=== PATIENT | female | born 1980 | race Caucasian/White ===

== ENCOUNTER 2016-09-08 16:04 | Emergency (ER) | payer BC ==
[~2016-09-08] VITALS: Ht 160 cm; Wt 60.0 kg
--- OUTSIDE RECORDS SUMMARY | 2016-09-08 16:09 | XMS REPORT | Continuity of Care Document ---
Author Author [facility] Organization [facility] Address Unknown Phone Unavailable Support Name Relationship Address Phone SEPTEMBER, DANIEL Roa DO Caregiver [address] [place] [address] Unavailable KVNG LIANG DO Caregiver [address] [place] [address] Unavailable LINDA MIQUEL Next Of Kin [address] [place] [address] Insurance Providers Guarantor Constance Blakely Address [address] [place] [address] c Email [email or web address] Payer [facility] Policy Number [id number] Subscriber's Name Kimberley Donisilan Reyes Relationship 01 Spouse Group Number [id number] Advance Directives Directive Response Recorded Date/Time Advanced Directives Type None 06/03/16 11:00pm Chief Complaint and Reason for Visit Chief Complaint Lower Extremity Injury Reason for Visit Contusion of foot Contusion of toe of left foot Problems Active Problems Medical Problem Onset Date Status Bronchitis with asthma, acute Unknown Acute Fall Unknown Acute Migraine Unknown Acute Right flank discomfort Unknown Acute Ruptured ovarian cyst Unknown Chronic Sinusitis Unknown Acute Thoracic back pain Unknown Acute Past Problems Medical Problem Onset Date Contusion of foot Unknown Contusion of toe of left foot Unknown Migraine headache Unknown Ruptured ovarian cyst Unknown Medications Past Home Medications Medication Directions Ordered Status Atenolol 25 Mg Tablet, 25 Mg Oral Daily 12/30/10 Discontinued Azithromycin (Zithromax) 250 Mg Tablet, 250 Mg Oral Daily 09/27/13 Discontinued Baclofen 10 Mg Tablet, 1 Tab Oral Bedtime 05/11/15 Discontinued Budesonide (Pulmicort) 0.25 Mg/2 Ml Ampul.neb, As Needed 09/24/09 Discontinued Ciprofloxacin Hcl (Cipro) 250 Mg Tablet, 05/22/08 Discontinued Diphenoxylate Hcl/Atrop Sulf (Lomotil) 1 Udtab Tablet, As Needed 05/13/09 Discontinued Escitalopram Oxalate (Lexapro) 10 Mg Tablet, 1 Tab Oral Daily 05/13/09 Discontinued Gabapentin (Neurontin) 300 Mg Capsule, 1 Tab Oral Daily 05/13/09 Discontinued Hydrocodone Bit/Acetaminophen (Lortab 7.5-500 Tablet) 1 Tab Tablet, 1 Tab Oral As Needed 05/03/08 Discontinued Hydrocodone/Acetaminophen (Hydrocodon-Acetaminophen 5-325) 1 Each Tablet, 1-2 Tab Oral Every 6 Hours as needed for Pain 05/11/15 Discontinued Ibuprofen (Motrin) 800 Mg Tablet, 800 Mg Oral As Needed 05/03/08 Discontinued Levalbuterol Hcl (Xopenex) 1.25 Mg/0.5/Blist Pack Vial.neb., As Needed Discontinued None , 12/01/11 Discontinued None , 03/22/08 Discontinued Omeprazole 20 Mg Capsule.dr, 20 Mg Oral Before Breakfast 03/10/16 Discontinued Omeprazole (Prilosec) 20 Mg Capsule.dr, 1 Tab Oral Daily 05/13/09 Discontinued Ondansetron (Zofran Odt) 4 Mg/Udtablet Tab.rapdis, 4 Mg Oral As Needed Discontinued Social History Social History Problem Response Recorded Date/Time Onset Date Status Hx Substance Use No 06/03/2016 11:11pm Not Applicable Not Applicable Hx Alcohol Use Y RARELY 06/03/2016 11:11pm Not Applicable Not Applicable Tobacco Usage none 08/26/2014 2:45am Not Applicable Not Applicable Query Response Start Date Stop Date Smoking Status Never smoker Hospital Discharge Instructions No hospital discharge instructions. Plan of Care Discharge Date 06/04/16 12:05am Disposition 01 DISCHARGED HOME, SELF-CARE Condition at Discharge Stable Instructions/Education Provided DI for Contusion Prescriptions See Medication Section Referrals KVNG LIANG DO Address: [address] [place] [phone] Additional Instructions/Education No fracture identified on xray today. I do want you to ice and elevate and take Ibuprofen as needed for pain. Follow up with your primary care provider as needed if not improving at all. Care Plan and Goals Physician Care Plan Problem:Left toe and foot contusion Goal: Follow up with primary care provider Instructions: Take medications and follow care plan as discussed/written Functional Status No functional status results. Allergies, Adverse Reactions, Alerts Allergen Type Severity Reaction Status Last Updated Morphine Allergy Unknown Active 06/03/16 Doxycycline Allergy Severe THROAT SWELLS Active 06/03/16 Immunizations Query Response on File Recorded Date/Time Hx Influenza Vaccination Y 201310/08/14 10:27pm Hx Pneumococcal Vaccination Y fall 200710/08/14 10:27pm Hx Tetanus, Diptheria, Pertussis No 10/08/14 10:27pm Hx Influenza Vaccination Y 201310/08/14 10:27pm Hx Tetanus Diptheria N UNKNOWN 06/03/16 11:11pm Hx Tetanus, Diptheria, Pertussis No 10/08/14 10:27pm Influenza Vaccine Hx 03/1606/03/16 11:11pm Vital Signs Acute Vital Signs Vital Response Date/Time Temperature (Fahrenheit) 98.2 deg F (96.8 - 99.1) 06/04/2016 12:05am Temperature (Calculated Celsius) 36.11676 degrees C (36.0 - 37.3) 06/04/2016 12:05am Pulse Rate (adult) 83 bpm (60 - 100) 06/04/2016 12:05am Respiratory Rate 16 breaths/min (10 - 20) 06/04/2016 12:05am O2 Sat by Pulse Oximetry 100 % (90 - 100) 06/04/2016 12:05am Blood Pressure 113/52 mm Hg 06/04/2016 12:05am Height (Feet) 5 feet 06/03/2016 11:00pm Height (Inches) 3.00 inches 06/03/2016 11:00pm Weight (Kilograms) 63.900 kg 06/03/2016 11:00pm Body Mass Index (BMI) 24.0 06/03/2016 11:00pm Results Laboratory Results Test Name Result Units Flags Reference Collection Date/Time Result Date/ Time Comments Urine Collection Type CLEANCATCH-MIDSTREAM 03/10/2016 11:11pm 03/10 11:32pm Urine Color YELLOW YELLOW 03/10/2016 11:11pm 03/10/2016 11:32pm Urine Turbidity CLEAR CLEAR 03/10/2016 11:11pm 03/10/2016 11:32pm Urine Specific [place] 1.010 L 1.015-1.025 03/10/2016 11:11pm 2015 11:32pm Urine pH 8.5 H 5.0-8.0 03/10/2016 11:11pm 03/10/2016 11:32pm Urine Leukocyte Esterase NEGATIVE NEGATIVE 03/10/2016 11:11pm 2015 11:32pm Urine Nitrite NEGATIVE NEGATIVE 03/10/2016 11:11pm 03/10/2016 11: 32pm Urine Protein NEGATIVE NEGATIVE 03/10/2016 11:11pm 03/10/2016 11: 32pm Urine Glucose (UA) NEGATIVE NEGATIVE 03/10/2016 11:11pm 03/10/2016 11 :32pm Urine Ketones NEGATIVE NEGATIVE 03/10/2016 11:11pm 03/10/2016 11: 32pm Urine Urobilinogen 0.2 EU/DL NORMAL 03/10/2016 11:11pm 03/10/2016 11: 32pm Urine Bilirubin NEGATIVE NEGATIVE 03/10/2016 11:11pm 03/10/2016 11: 32pm Urine Blood NEGATIVE NEGATIVE 03/10/2016 11:11pm 03/10/2016 11:32pm Urinalysis Comment MICROSCOPIC NOT IND. 03/10/2016 11:11pm 2015 11:32pm Procedures Procedure Status Date Provider(s) URINALYSIS AUTO W/O SCOPE Completed 03/10/16 THER/PROPH/DIAG INJ IV PUSH Completed 03/10/16 TX/PRO/DX INJ NEW DRUG ADDON Completed 03/10/16 TX/PRO/DX INJ NEW DRUG ADDON Completed 03/10/16 EMERGENCY DEPT VISIT Completed 03/10/16848153"INJECTION, HYDROMORPHONE, UP TO 4 MG" Completed 03/10/16500998"INJECTION, KETOROLAC TROMETHAMINE, PER 15 MG" Completed 03/10/16721590"INJECTION, ONDANSETRON HYDROCHLORIDE, PER 1 MG" Completed 03/10/16 Compound Drug, Not Otherwise Classified Completed 03/10/16 THER/PROPH/DIAG INJ SC/IM Completed 03/31/16 THER/PROPH/DIAG INJ SC/IM Completed 03/31/16 THER/PROPH/DIAG INJ SC/IM Completed 03/31/16 EMERGENCY DEPT VISIT Completed 03/31/16246377"INJECTION, HYDROMORPHONE, UP TO 4 MG" Completed 03/31/16721145"INJECTION, KETOROLAC TROMETHAMINE, PER 15 MG" Completed 03/31/16898438"INJECTION, PROMETHAZINE HCL, UP TO 50 MG" Completed 03/31/16 Encounters Encounter Location Arrival/Admit Date Discharge/Depart Date Attending Provider Departed Emergency Room [facility] 06/03/16 10:51pm 06/04/16 12: 05am SEPTEMBERDANIEL DO Departed Emergency Room [facility] 03/31/16 9:53pm 04/01/16 12: 33am ORTEGA KIRK MD Departed Emergency Room [facility] 03/10/16 10:33pm 03/11/16 12: 10am ORTEGA KIRK MD Recent Diagnosis
--- OUTSIDE RECORDS SUMMARY | 2016-09-08 16:09 | XMS REPORT | Continuity of Care Document ---
Author Author [facility] Organization [facility] Address Unknown Phone Unavailable Allergies Medications Problems Procedures Results Encounters ACCT No. Visit Date/Time Discharge Status Pt. Type Provider Facility Loc./Unit Complaint [id number] 03/12/2015 11:12:00 2014 23:59:59 CLS Outpatient
--- OUTSIDE RECORDS SUMMARY | 2016-09-08 16:09 | XMS REPORT | Continuity of Care Document ---
Author Author [facility] Organization [facility] Address Unknown Phone Unavailable Support Name Relationship Address Phone JEWEL OSBORNE MD Caregiver [address] [place] [address] DYLAN BAILEY MD Caregiver [address] [place] [address] [place] [phone] MIQUEL MCKEON Next Of Kin [address] [place], [place] [id number] Insurance Providers Payer Name Policy Number Subscriber Name Relationship [facility] [id number] Gagandeep Sr,Everardo L 01 Spouse Problems Medical Problems Problem Onset Date Status Migraine Unknown Active Sinusitis Unknown Active Migraine Unknown Active Migraine Unknown Active Medications Medication Dose Route Sig Days/Qty Instructions Order Date Discontinued Date Status [None] 03/22/08 05/02/08 Discontinued Ibuprofen 800 Mg PO NEEDED 05/03/08 09/24/09 Discontinued Hydrocodone Bit/Acetaminophen 1 Tab PO NEEDED 05/03/08 01/26/09 Discontinued Ciprofloxacin Hcl 05/22/08 07/28/08 Discontinued Escitalopram Oxalate 1 Tab PO DAILY 05/13/09 09/24/09 Discontinued Diphenoxylate Hcl/Atrop Sulf NEEDED 05/13/09 09/24/09 Discontinued Gabapentin 1 Tab PO DAILY 05/13/09 09/24/09 Discontinued Omeprazole 1 Tab PO DAILY 05/13/09 09/24/09 Discontinued Budesonide NEEDED 09/24/09 12/30/10 Discontinued Levalbuterol Hcl NEEDED 09/24/09 12/30/10 Discontinued Atenolol 25 Mg PO DAILY 12/30/10 12/01/11 Discontinued Ondansetron 4 Mg PO NEEDED 12/30/10 12/01/11 Discontinued [None] 12/01/11 09/27/13 Discontinued Azithromycin 250 Mg PO DAILY 4 Qty 09/27/13 09/27/13 Discontinued Hydrocodone/Acetaminophen 1-2 Tab PO Every 6 Hours PRN PAIN 04/19/14 Active Ondansetron 4 Mg PO EVERY 4 HOURS Oral Disintegrating Tablet 04/19/14 Active Caffeine 04/19/14 Active Social History Social History Problem Response Recorded Date/Time Smoking Status Never smoker 09/27/2013 1:40am Hx Substance Use No 04/19/2014 9:30pm Hx Alcohol Use No 04/19/2014 9:30pm Query Response Start Date Stop Date Smoking Status Current every day smoker Hospital Discharge Instructions No hospital discharge instructions. Plan of Care No plan of care. Functional Status Query Response Date Recorded Physical Hygiene Self April 19, 2014 9:30pm Disabilities None April 19, 2014 9:30pm Devices Used Glasses April 19, 2014 9:30pm Dressing Self April 19, 2014 9:30pm Ambulation Self April 19, 2014 9:30pm Diet Self April 19, 2014 9:30pm Mental Status Alert Oriented April 19, 2014 9:30pm Disabilities None April 19, 2014 9:30pm Devices Used Glasses April 19, 2014 9:30pm Physical Hygiene Self April 19, 2014 9:30pm Dressing Self April 19, 2014 9:30pm Ambulation Self April 19, 2014 9:30pm Diet Self April 19, 2014 9:30pm Allergies, Adverse Reactions, Alerts Allergen Type Severity Reaction Status Last Updated Doxycycline Allergy Severe THROAT SWELLS Active 04/19/14 Immunizations Name Given Type Hx Influenza Vaccination Y FALL 2007 Historical Hx Pneumococcal Vaccination Y FALL 2007 Historical Hx Tetanus, Diptheria, Pertussis No Historical Hx Influenza Vaccination Y FALL 2007 Historical Hx Tetanus Diptheria N UNKNOWN Historical Hx Tetanus, Diptheria, Pertussis No Historical Vital Signs Acute Vital Signs Vital Response Date/Time Pulse Rate (adult) 59 bpm (60 - 100) Respiratory Rate 18 breaths/min (10 - 20) O2 Sat by Pulse Oximetry 99 % (90 - 100) Blood Pressure 104/51 mm Hg Results Test Source Date Result Interp. Ref. Range Comments Activated Partial Thromboplast Time May 22, 2008 10:45pm 32.8 SEC N 25-36 Alanine Aminotransferase (ALT/SGPT) January 22, 2013 12:25am 28 U/L N 9- 52 Albumin January 22, 2013 12:25am 4.2 G/DL N 3.5-5.0 Albumin/Globulin Ratio January 22, 2013 12:25am 1.8 RATIO N 1.1-2.2 Alkaline Phosphatase January 22, 2013 12:25am 53 U/L N 38-126 Amylase Level January 22, 2013 12:25am 64 U/L N 30-110 Anion Gap January 22, 2013 12:25am 12 MEQ/L N 5-15 Aspartate Amino Transf (AST/SGOT) January 22, 2013 12:25am 22 U/L N 14- 36 BUN/Creatinine Ratio January 22, 2013 12:25am 15 RATIO N 6-26 Band Neutrophils # January 30, 2009 5:05am 0.0 T/MM3 - Band Neutrophils % January 30, 2009 5:05am 0.0 % N 0-6 Basophils # (Auto) January 22, 2013 12:25am 0.0 T/MM3 N 0-0.2 Basophils # (Manual) January 30, 2009 5:05am 0.0 T/MM3 N 0-0.2 Basophils % (Manual) January 30, 2009 5:05am 0.0 % N 0-2 Basophils (%) (Auto) January 22, 2013 12:25am 0.3 % N 0-2 Blood Urea Nitrogen January 22, 2013 12:25am 9.0 MG/DL N 7-17 C-Reactive Protein January 27, 2009 7:00pm < 5 MG/L 0-9 Calcium Level January 22, 2013 12:25am 8.9 MG/DL N 8.4-10.2 Calculated Osmolality January 22, 2013 12:25am 269 MOSM/KG N 261-280 Carbon Dioxide Level January 22, 2013 12:25am 26 MEQ/L N 22-30 Chloride Level January 22, 2013 12:25am 103 MEQ/L N 98-107 Conjugated Bilirubin January 29, 2009 5:40am 0.00 MG/DL N 0.00-0.30 Creatinine January 22, 2013 12:25am 0.6 MG/DL L 0.7-1.2 Differential Total Cells Counted January 27, 2009 7:00pm 100 % - Eosinophils # (Auto) January 22, 2013 12:25am 0.4 T/MM3 N 0-0.5 Eosinophils # (Manual) January 30, 2009 5:05am 0.2 T/MM3 N 0-0.5 Eosinophils % (Manual) January 30, 2009 5:05am 4.0 % N 0-4 Eosinophils (%) (Auto) January 22, 2013 12:25am 5.3 % H 0-4 Lui-Vega Virus Serology August 20, 2009 2:52pm Ref lab rpt scanned - --- 08/23/09 1528 ---EBVAB previously reported as: SEND OUT Erythrocyte Sedimentation Rate January 27, 2009 7:00pm 6 MM/HR N 0-20 Fasting Glucose August 27, 2009 9:27am 0 90 - Fibrinogen May 03, 2008 11:05pm 326 MG/DL N 153-406 Free Thyroxine December 13, 2010 9:10am 1.00 NG/DL N 0.78-2.19 Globulin January 22, 2013 12:25am 2.4 G/DL N 2.4-3.6 Glucose 1 Hour August 27, 2009 9:27am 4080 99 - Glucose 1/2 Hour August 27, 2009 9:27am 1920 115 - Glucose 2 Hour August 27, 2009 9:27am 7680 86 - Glucose Level January 22, 2013 12:25am 87 MG/DL N 65-110 Group A Streptococcus Screen September 21, 2007 12:10am Negative - Strep culture confirmation to follow Hematocrit January 22, 2013 12:25am 37.1 % N 36-46 Hemoglobin January 22, 2013 12:25am 12.7 GM/DL N 12-16 Lipase January 22, 2013 12:25am 68 U/L N 23-300 Lymphocytes # (Auto) January 22, 2013 12:25am 2.7 T/MM3 N 1-4.8 Lymphocytes # (Manual) January 30, 2009 5:05am 2.4 T/MM3 N 1-4.8 Lymphocytes % (Manual) January 30, 2009 5:05am 48.0 % H 23-45 Lymphocytes (%) (Auto) January 22, 2013 12:25am 38.1 % N 23-45 Mean Corpuscular Hemoglobin January 22, 2013 12:25am 33.2 UUG N 26-34 Mean Corpuscular Hemoglobin Concent January 22, 2013 12:25am 34.2 GM/DL N 31-37 Mean Corpuscular Volume January 22, 2013 12:25am 96.9 UM3 N 80-100 Mean Platelet Volume January 22, 2013 12:25am 10.2 UM3 N 9.4-12.4 Monocytes # (Auto) January 22, 2013 12:25am 0.6 T/MM3 N 0-0.8 Monocytes # (Manual) January 30, 2009 5:05am 0.5 T/MM3 N 0-0.8 Monocytes % (Manual) January 30, 2009 5:05am 10.0 % H 0-9.0 Monocytes (%) (Auto) January 22, 2013 12:25am 8.6 % N 0-9.0 Neutrophils # (Auto) January 22, 2013 12:25am 3.4 T/MM3 N 1.8-7.7 Neutrophils # (Manual) January 30, 2009 5:05am 1.9 T/MM3 N 1.8-7.7 Neutrophils % (Manual) January 30, 2009 5:05am 38.0 % N 33-66 Neutrophils (%) (Auto) January 22, 2013 12:25am 47.6 % N 33-66 Platelet Count January 22, 2013 12:25am 225 T/MM3 N 130-400 Potassium Level January 22, 2013 12:25am 3.5 MEQ/L L 3.6-5 Prealbumin January 27, 2009 7:00pm 18.9 MG/DL N 17.6-36.0 Prothromb Time International Ratio May 22, 2008 10:45pm 0.99 N 0.79 -1.23 THERAPUTIC RANGE=2.00-3.00 FOR ANTI-THROMBOSIS THERAPUTIC RANGE=2.50- 3.50 FOR IMPLANTED VALVE RDW Standard Deviation January 22, 2013 12:25am 42.8 FL N 36.9-50.2 Red Blood Count January 22, 2013 12:25am 3.83 M/MM3 L 4.00-5.20 Sodium Level January 22, 2013 12:25am 141 MEQ/L N 134-144 Tests Not Done January 27, 2009 9:55pm Not done - COMMENT WITH C&S IF INDICATEDHas specimen been collected/obtained? Y Thyroid Stimulating Hormone (TSH) December 13, 2010 9:10am 2.68 MIU/L N 0.47 -4.68 Total Bilirubin January 22, 2013 12:25am 0.30 MG/DL N 0.20-1.30 Total Protein January 22, 2013 12:25am 6.6 G/DL N 6.3-8.2 Unconjugated Bilirubin January 29, 2009 5:40am 0.27 MG/DL N 0.00-1.10 Urine Bacteria March 22, 2008 4:34pm Trace - Has specimen been collected/obtained? YWhat is the Source? VOIDED Urine Bilirubin January 22, 2013 12:50am Negative - Has specimen been collected/obtained? Y Urine Blood January 22, 2013 12:50am Negative - Has specimen been collected/obtained? Y Urine Collection Type January 22, 2013 12:50am Cleancatch-midstream - Has specimen been collected/obtained? Y Urine Color January 22, 2013 12:50am Yellow - Has specimen been collected/obtained? Y Urine Fasting Glucose August 27, 2009 9:27am 0 Negative - Urine Glucose (UA) January 22, 2013 12:50am Negative - Has specimen been collected/obtained? Y Urine Glucose 1 Hour August 27, 2009 9:27am 4080 Shirt Cleaner - Urine Glucose 1/2 Hour August 27, 2009 9:27am 1920 Negative - Urine Glucose 2 Hour August 27, 2009 9:27am 7680 Shirt Cleaner - Urine Ketones January 22, 2013 12:50am Negative - Has specimen been collected/obtained? Y Urine Leukocyte Esterase January 22, 2013 12:50am Negative - Has specimen been collected/obtained? Y Urine Nitrite January 22, 2013 12:50am Negative - Has specimen been collected/obtained? Y Urine Test March 22, 2008 4:34pm Negative - Has specimen been collected/obtained? YWhat is the Source? VOIDED Urine Protein January 22, 2013 12:50am Negative - Has specimen been collected/obtained? Y Urine RBC May 22, 2008 10:33pm None seen /HPF - Has specimen been collected/obtained? Y Urine Specific [place] January 22, 2013 12:50am 1.005 L - Has specimen been collected/obtained? Y Urine Squamous Epithelial Cells March 22, 2008 4:34pm Few - Has specimen been collected/obtained? YWhat is the Source? VOIDED Urine Turbidity January 22, 2013 12:50am Clear - Has specimen been collected/obtained? Y Urine Urobilinogen January 22, 2013 12:50am Normal EU/DL - Has specimen been collected/obtained? Y Urine WBC May 22, 2008 10:33pm 1-3 /HPF - Has specimen been collected/obtained? Y Urine Yeast May 22, 2008 10:33pm Trace - Has specimen been collected/obtained? Y Urine pH January 22, 2013 12:50am 6.5 - Has specimen been collected/ obtained? Y Vitamin B12 Level January 27, 2009 7:00pm 341 PG/ML N 239-931 White Blood Count January 22, 2013 12:25am 7.2 T/MM3 N 4.5-11.0 Urinalysis Comment January 22, 2013 12:50am Microscopic not ind. - Has specimen been collected/obtained? Y Lab Scanned Report November 25, 2013 7:15pm LAB TEST FORM REQUEST [id number] - Glomerular Filtration Rate Calc January 22, 2013 12:25am 115 - Immature Granulocyte # (Auto) January 22, 2013 12:25am 0.01 T/MM3 N 0.00- 0.03 Immature Granulocyte % (Auto) January 22, 2013 12:25am 0.1 % N 0.0-0.5 Group A Streptococcus Culture Throat September 21, 2007 1:01am Urine Culture Urine, Clean Catch Voided December 13, 2010 9:10am Helicobacter pylori Rapid Urease Gastric Biopsy January 27, 2009 11:14am Procedures No known history of procedures. Encounters Encounter Location Date/Time Departed Emergency Room [facility] 04/19/14 9:00pm Recent Diagnosis
--- OUTSIDE RECORDS SUMMARY | 2016-09-08 16:09 | XMS REPORT | Continuity of Care Document ---
Author Author [facility] Organization [facility] Address Unknown Phone Unavailable Support Name Relationship Address Phone KVNG LIANG DO Caregiver [address] [place] [phone] JENARO FRIED MD Caregiver [address] [facility] [address] [place] [address] LINDASERGEY JACOBSAY Next Of Kin [address] [place] [address] Insurance Providers Payer Name Policy Number Subscriber Name Relationship [facility] [id number] Everardo Donis 01 Spouse Problems Medical Problems Problem Onset Date Status Migraine Unknown Active Sinusitis Unknown Active Migraine Unknown Active Migraine Unknown Active Bronchitis with asthma, acute Unknown Active Bronchitis with asthma, acute Unknown Active Medications Medication Dose Route Sig [...] Every 6 Hours PRN PAIN 04/19/14 Active Azithromycin 1 Pack PO DIRECTED 1 Qty Take 2 tabs the first day then 1 tab daily on days 2 through 08/26/14 Active Phenylephrine HCl/Cod/Prometh 5 Ml PO Every 6 Hours PRN COUGH 50 Qty Active Cetirizine HCl 1 Cap PO DAILY 10 Days 08/26/14 Active Fluconazole 1 Tab PO as directed 2 Qty tab 3 days later 08/26/14 Active Social History Social History Problem Response Recorded Date/Time Chewing Tobacco Status No 08/26/2014 12:20am Hx Substance Use No 08/26/2014 12:20am Hx Alcohol Use No 08/26/2014 12:20am Tobacco Usage none 08/26/2014 2:45am Query Response Start Date Stop Date Smoking Status Never smoker Hospital Discharge Instructions No hospital discharge instructions. Plan of Care No plan of care. Functional Status Query Response Date Recorded Physical Hygiene Self August 26, 2014 12:20am Disabilities Visual August 26, 2014 12:20am Devices Used Glasses August 26, 2014 12:20am Dressing Self August 26, 2014 12:20am Ambulation Self August 26, 2014 12:20am Diet Self August 26, 2014 12:20am Mental Status Alert Oriented August 26, 2014 1:43am Disabilities Visual August 26, 2014 12:20am Devices Used Glasses August 26, 2014 12:20am Physical Hygiene Self August 26, 2014 12:20am Dressing Self August 26, 2014 12:20am Ambulation Self August 26, 2014 12:20am Diet Self August 26, 2014 12:20am Allergies, Adverse Reactions, Alerts Allergen Type Severity Reaction Status Last Updated Doxycycline Allergy Severe THROAT SWELLS Active 08/26/14 Immunizations Name Given Type Hx Influenza Vaccination Y FALL 2007 Historical Hx Pneumococcal Vaccination Y FALL 2007 Historical Hx Tetanus, Diptheria, Pertussis No Historical Hx Influenza Vaccination Y FALL 2007 Historical Hx Tetanus Diptheria N UNKNOWN Historical Hx Tetanus, Diptheria, Pertussis No Historical Vital Signs Acute Vital Signs Vital Response Date/Time Temperature (Fahrenheit) 98.4 deg F (96.8 - 99.1) Temperature (Calculated Celsius) 36.02523 degrees C (36.0 - 37.3) Pulse Rate (adult) 88 bpm (60 - 100) Respiratory Rate 20 breaths/min (10 - 20) O2 Sat by Pulse Oximetry 100 % (90 - 100) Blood Pressure 115/66 mm Hg Blood Pressure 115/66 mm Hg Height (Feet) 5 feet Height (Inches) 3 inches Weight (Kilograms) 64.68 kg Body Mass Index (BMI) 25.0 Results Test Source Date Result Interp. Ref. Range Comments Influenza Type B Antigen August 26, 2014 12:50am Negative - Negative for Flu B protein antigen. Assay sensitivity is90%. Influenza Type A Antigen August 26, 2014 12:50am Negative - Negative for Flu A protein antigen. Assay sensitivity is90%. Activated Partial Thromboplast Time May 22, 2008 [...] 1 Hour August 27, 2009 9:27am 4080 Shoe Fitter - Urine Glucose 1/2 Hour August 27, 2009 9:27am 1920 Negative - Urine Glucose 2 Hour August 27, 2009 9:27am 7680 Shoe Fitter - Urine Ketones January 22, 2013 12:50am [...] Has specimen been collected/obtained? Y Urine Specific [place] January 22, 2013 12:50am 1.005 L - [...] 25, 2013 7:15pm LAB TEST FORM REQUEST [id number] - Glomerular Filtration Rate Calc January 22, 2013 12:25am 115 - Immature Granulocyte # (Auto) January 22, 2013 12:25am 0.01 T/MM3 N 0.00- 0.03 Immature Granulocyte % (Auto) January 22, 2013 12:25am 0.1 % N 0.0-0.5 Group A Streptococcus Culture Throat September 21, 2007 1:01am Helicobacter pylori Rapid Urease Gastric Biopsy January 27, 2009 11:14am Urine Culture Urine, Clean Catch Voided December 13, 2010 9:10am Procedures Procedure Status Date Provider(s) ULTRASOUND BREAST LIMITED completed 07/07/14 [id number]"DIAGNOSTIC MAMMOGRAPHY, PRODUCING DIRECT DIGITAL IMAG completed Encounters Encounter Location Date/Time Departed Emergency Room [facility] 08/26/14 12:05am Registered Clinic [facility] 07/07/14 9:28am Recent Diagnosis
[2016-09-08 16:15] VITALS: TEMP 98.6; Ht 160 cm; Wt 60.0 kg
--- NOTE | 2016-09-08 17:19 | NUR ---
REASSESSMENT NOTE No change in earlier assessment. Communication regarding delay explained
--- NOTE | 2016-09-08 17:49 | ERPDOC ---
Departure Disposition Decision Date: Sep 08, 2016 Disposition Decision Time: 17:53 Disposition: 01 DISCHARGED HOME, SELF-CARE Impression Impression Impression: Primary Impression: Migraine Qualified Codes: G43.009 - Migraine without aura, not intractable, without status migrainosus Severity: Moderate Condition: Stable Seen By: Physician only Referrals: KVNG LIANG DO (Family) Patient Instructions: Migraine Headache (ED) Problems/Meds/Labs Reviewed?: Yes Medications reviewed and manag: Yes Follow up care ordered?: Yes Mental Status: Alert, Oriented Scripts No Active Prescriptions or Reported Meds HPI - Headache General Chief Complaint: Headache Stated Complaint: MIGRAINE Time Seen by Provider: 17:48 HPI - Headache Allergies: Coded Allergies: doxycycline (Verified Allergy, Severe, THROAT SWELLS, 09/08/16) morphine (Verified Allergy, Unknown, 09/08/16) Past History Past Medical History Respiratory: asthma, pneumonia GI: gallbladder disease, ulcers Female: endometriosis, endometritis, kidney stones Neurological: TIA, migraines, multiple sclerosis Musculoskeletal: back pain, neck pain Psychological: depression Surgical History General: EGD, appendix, exploratory laparotomy, gallbladder Reproductive/: hysterectomy Joint: knee Family History Family PMH: FOUND: other Vaccines Hx Influenza Vaccination: Yes (2013) Hx Pneumococcal Vaccination: Yes (FALL 2007) Hx Tetanus Diptheria: No (UNKNOWN) Hx Tetanus, Diptheria, Pertuss: No Social History Does patient use chewing tobac: No Second Hand Exposure: No Substance Use Type: does not use Alcohol Intake: none Sexuality: male partner Physical Exam General Vitals and Pain First Documented Vital Signs Date Time Temp Pulse Resp B/P Pulse Ox O2 Delivery O2 Flow Rate FiO2 09/08/16 16:15 98.6 80 16 96/53 98 Room Air Weight: Kilograms: 60.000 Height (feet): 5 Height (inches): 3.00 Triage Pain Scale: JENARO FRIED MD Sep 08, 2016 17:49
[2016-09-08] MEDS ORDERED: PROMETHAZINE 25 MG INJECTION IM ONE (18:00)
[2016-09-08] MEDS ORDERED: KETOROLAC 60mg/2ml INJECTION IM ONE (18:00)
[2016-09-08] MEDS ORDERED: ORPHENADRINE 60mg/2ml INJECTION IM ONE (18:00)
[2016-09-08] MEDS ORDERED: NO ROUTINE MEDS (18:01)
[2016-09-08] MEDS ORDERED: ONDA4TAB4 PO (18:01)
[2016-09-08] MEDS ORDERED: HYDR-4246 PO (18:01)
--- OUTSIDE RECORDS SUMMARY | 2016-09-08 18:13 | XMS REPORT | Continuity of Care Document ---
Author Author [facility] Organization [facility] Address Unknown Phone Unavailable Allergies Medications Problems Procedures Results Encounters ACCT No. Visit Date/Time Discharge Status Pt. Type Provider Facility Loc./Unit Complaint [id number] 03/12/2015 11:12:00 2014 23:59:59 CLS Outpatient
--- OUTSIDE RECORDS SUMMARY | 2016-09-08 18:13 | XMS REPORT | Continuity of Care Document ---
Author Author [facility] Organization [facility] Address Unknown Phone Unavailable Support Name Relationship Address Phone KVNG LIANG DO Caregiver [address] [place] [phone] JENARO FRIED MD Caregiver [address] [place] [address] LINDASERGEY JACOBSAY Next Of Kin [address] [place] [address] Insurance Providers Payer Name Policy Number Subscriber Name Relationship [facility] [id number] Everardo Donis 01 Spouse Problems Medical Problems [...] F (96.8 - 99.1) Temperature (Calculated Celsius) 36.50188 degrees C (36.0 - 37.3) Pulse Rate [...] 1 Hour August 27, 2009 9:27am 4080 [employer] Tender - Urine Glucose 1/2 Hour August 27, 2009 9:27am 1920 Negative - Urine Glucose 2 Hour August 27, 2009 9:27am 7680 [employer] Machine Tender - Urine Ketones January 22, 2013 12:50am [...] Has specimen been collected/obtained? Y Urine Specific [place] January 22, 2013 12:50am 1.005 L - [...] 25, 2013 7:15pm LAB TEST FORM REQUEST [id number] - Glomerular Filtration Rate Calc January 22, [...] Date Provider(s) ULTRASOUND BREAST LIMITED completed 07/07/14 [id number]"DIAGNOSTIC MAMMOGRAPHY, PRODUCING DIRECT DIGITAL IMAG completed Encounters Encounter Location Date/Time Departed Emergency Room [facility] 08/26/14 12:05am Registered Clinic [facility] 07/07/14 9:28am Recent Diagnosis
--- OUTSIDE RECORDS SUMMARY | 2016-09-08 18:13 | XMS REPORT | Continuity of Care Document ---
Author Author [facility] Organization [facility] Address Unknown Phone Unavailable Support Name Relationship Address Phone JEWEL OSBORNE MD Caregiver [address] [place] [address] DYLAN BAILEY MD Caregiver [address] [place] [address] [place] [phone] MIQUEL MCKEON Next Of Kin [address] [place], [place] [id number] Insurance Providers Payer Name Policy Number Subscriber Name Relationship [facility] [id number] Gagandeep Sr,Everardo L 01 Spouse Problems Medical [...] 1 Hour August 27, 2009 9:27am 4080 Email [employer] Processor - Urine Glucose 1/2 Hour August 27, 2009 9:27am 1920 Negative - Urine Glucose 2 Hour August 27, 2009 9:27am 7680 [employer] Processor - Urine Ketones January 22, 2013 12:50am [...] Has specimen been collected/obtained? Y Urine Specific [place] January 22, 2013 12:50am 1.005 L - [...] 25, 2013 7:15pm LAB TEST FORM REQUEST [id number] - Glomerular Filtration Rate Calc January 22, [...] Encounters Encounter Location Date/Time Departed Emergency Room [facility] 04/19/14 9:00pm Recent Diagnosis
[2016-09-08 18:45] VITALS: BP 100/64; PULSE 67; RESP 12; O2SAT 99
--- NOTE | 2016-09-08 18:45 | NUR ---
DEPART PT IS DISCHARGED AT THIS TIME, REPORTS IMPROVED NAUSEA AND REPORTS HER PAIN IS 5/10 AND TOLERABLE. PT LEAVES AMBULATORY WITH MALE AT THIS TIME.
== END 2016-09-08 18:45 | disposition home or self-care (01) ==
LOC: ED 16:04
DX: G43.009 Migraine without aura, not intractable, without status migrainosus (principal)
CPT/HCPCS: 96372; 99283; J1885; J2360; J2550

== ENCOUNTER 2016-10-21 13:57 | Emergency (ER) | payer BC ==
[~2016-10-21] VITALS: Ht 160 cm; Wt 59.0 kg
[~2016-10-21 13:57] MED LIST: HYDR-4246 PO; NO ROUTINE MEDS; ONDA4TAB4 PO
[2016-10-21 13:58] VITALS: TEMP 99.3; Ht 160 cm; Wt 59.0 kg
--- OUTSIDE RECORDS SUMMARY | 2016-10-21 14:02 | XMS REPORT | Continuity of Care Document ---
Author Author [facility] Organization [facility] Address Unknown Phone Unavailable Support Name Relationship Address Phone KVNG LIANG DO Caregiver [address] [place] [address] Unavailable JENARO FRIED MD Caregiver [address] [place] [address] [place] [address] Unavailable SERGEY MCKEONSAY Next Of Kin [address] [place], [place] [phone] Insurance Providers Guarantor Constance Blakely Address [address] [place] [address] c Email [email or web address] Policy Number [id number] Subscriber's Name Everardo Donis Relationship 01 Spouse Group Number [id number] Advance Directives Directive Response Recorded Date/Time Advanced Directives Type None 09/08/16 5:45pm Chief Complaint and Reason for Visit Chief Complaint Headache Reason for Visit Migraine Problems Active Problems Medical Problem Onset Date Status Bronchitis with asthma, acute Unknown Acute Fall Unknown Acute Migraine Unknown Acute Right flank discomfort Unknown Acute Ruptured ovarian cyst Unknown Chronic Sinusitis Unknown Acute Thoracic back pain Unknown Acute Past Problems Medical Problem Onset Date Contusion of foot Unknown Contusion of toe of left foot Unknown Migraine headache Unknown Ruptured ovarian cyst Unknown Medications Current Home Medications Medication Dose Units Route Directions Days Qty Instructions Start Date Hydrocodone/Acetaminophen ([place] 5-325 Tablet) 5-325 Tablet 1 Tab Oral Every 6 Hours as needed for Pain 09/08/16 No Routine Meds 09/08/16 Ondansetron Hcl (Zofran) 4 Mg Tablet 4 Mg Oral Every 4 Hours as needed for Nausea 09/08/16 Past Home Medications Medication Directions Ordered Status Acetaminophen/Hydrocodone Bitart ([place] 5-325 Tablet) 1 Each Tablet, 1-2 Tab Oral Every 6 Hours as needed for Pain 05/11/15 Discontinued Atenolol 25 Mg Tablet, 25 Mg Oral [...] 1 Tab Oral As Needed 05/03/08 Discontinued Ibuprofen (Motrin) 800 Mg Tablet, 800 [...] Onset Date Status Hx Substance Use No 09/08/2016 5:50pm Not Applicable Not Applicable Hx Alcohol Use Y RARELY 09/08/2016 5:50pm Not Applicable Not Applicable Tobacco Usage none 08/26/2014 2:45am Not Applicable Not Applicable Query Response Start Date Stop Date Smoking Status Never smoker Hospital Discharge Instructions No hospital discharge instructions. Plan of Care Discharge Date 09/08/16 6:45pm Disposition 01 DISCHARGED HOME, SELF-CARE Condition at Discharge Stable Instructions/Education Provided Migraine Headache (ED) Prescriptions See Medication Section Referrals KVNG LIANG DO Address: [address] [place] [phone] Care Plan and Goals Physician Care Plan Problem: Headache consistent with migraine Goal: Follow up with primary care provider Instructions: Take medications and follow care plan as discussed/written Functional Status No functional status results. Allergies, Adverse Reactions, Alerts Allergen Type Severity Reaction Status Last Updated Morphine Allergy Unknown Active 09/08/16 Doxycycline Allergy Severe THROAT SWELLS Active 09/08/16 Immunizations Query Response on File Recorded Date/Time Hx Influenza Vaccination Y 201310/08/14 10:27pm Hx Pneumococcal Vaccination Y fall 200710/08/14 10:27pm Hx Tetanus, Diptheria, Pertussis No 10/08/14 10:27pm Hx Influenza Vaccination Y 201310/08/14 10:27pm Hx Tetanus Diptheria N UNKNOWN 06/03/16 11:11pm Hx Tetanus, Diptheria, Pertussis No 10/08/14 10:27pm Influenza Vaccine Hx 03/1609/08/16 5:50pm Vital Signs Acute Vital Signs Vital Response Date/Time Temperature (Fahrenheit) 98.6 deg F (96.8 - 99.1) 09/08/2016 4:15pm Temperature (Calculated Celsius) 37.45984 degrees C (36.0 - 37.3) 09/08/2016 4:15pm Pulse Rate (adult) 67 bpm (60 - 100) 09/08/2016 6:45pm Respiratory Rate 12 breaths/min (10 - 20) 09/08/2016 6:45pm O2 Sat by Pulse Oximetry 99 % (90 - 100) 09/08/2016 6:45pm Blood Pressure 100/64 mm Hg 09/08/2016 6:45pm Blood Pressure 100/64 mm Hg 09/08/2016 6:45pm Height (Feet) 5 feet 09/08/2016 4:15pm Height (Inches) 3.00 inches 09/08/2016 4:15pm Weight (Kilograms) 60.000 kg 09/08/2016 4:15pm Body Mass Index (BMI) 23.0 09/08/2016 4:15pm Results No known relevant diagnostic tests, laboratory data and/or discharge summary. Procedures No known history of procedures. Encounters Encounter Location Arrival/Admit Date Discharge/Depart Date Attending Provider Departed Emergency Room [facility] 09/08/16 4:04pm 09/08/16 6: 45pm JENARO FRIED MD Recent Diagnosis
--- NOTE | 2016-10-21 14:12 | NUR ---
PROVIDER DR. ETIENNE AT BEDSIDE FOR EXAM.
[2016-10-21] MEDS ORDERED: NORMAL SALINE 1,000 ML IV ONE (14:16)
[2016-10-21] MEDS ORDERED: ONDANSETRON 4mg/2ml INJECTION IV ONE ×2 (14:30→17:30)
[2016-10-21] MEDS ORDERED: KETOROLAC 30mg/ml INJECTION IV ONE (14:30)
[2016-10-21 14:35] LABS: HCT - HEMATOCRIT 41.3 % (36-46); HGB - HEMOGLOBIN 14.1 GM/DL (12-16); MEAN CORPUSCULAR HGB 32.9 UUG (26-34); MEAN CORPUSCULAR HGB CONC(MCHC 34.1 GM/DL (31-37); MEAN CORPUSCULAR VOLUME 96.5 UM3 (80-100); MEAN PLATELET VOLUME 10.1 UM3 (9.4-12.4); RED BLOOD COUNT 4.28 M/MM3 (4.00-5.20)
--- NOTE | 2016-10-21 14:35 | ERPDOC ---
Departure Disposition Decision Date: October 21, 2016 Disposition Decision Time: 17:09 Disposition: 01 DISCHARGED HOME, SELF-CARE Impression Impression Impression: Primary Impression: Gastroenteritis Additional Impression: Dehydration Severity: Moderate Condition: Improved Seen By: Physician only Referrals: KVNG LIANG DO (Family) 1 Week Patient Instructions: Gastroenteritis (ED) Problems/Meds/Labs Reviewed?: Yes Medications reviewed and manag: Yes Additional Instructions: You have gastroenteritis (a stomach bug) caused by either a virus or a toxin in your food. Take naproxen or ibuprofen as needed for your pain. Drink lots of liquids, and take zofran as needed for nausea. Allow any diarrhea to take its course. Follow up with your doctor in the next few days. Departure Forms: Return to Work/School Permit Follow up care ordered?: Yes Mental Status: Alert, Oriented Scripts Ondansetron (Ondansetron Odt) 4 Mg Tab.rapdis 4 MG PO Q6HR, #20 TAB Prov: SEPTEMBERDANIEL DO 10/21/16 HPI - Abdominal Pain General Chief Complaint: Nausea,Vomiting,Diarrhea Stated Complaint: N/V, ACHY, FEVER Time Seen by Provider: 13:59 Source: patient History/Exam Limitations: no limitations HPI - Abdominal Pain Initial Comments 36yo woman presents to the ER today with N/V/D. Pts sx have been present for 3- 4 days; she has been trying to keep sx under control with OTC meds and hydrating drinks. Pt has been unsuccessful. Feels achy all over (like she did with the flu earlier this year). Has continued diarrhea and a MONTOYA. Occurred At: home Onset: Gradual, Getting worse Duration: 1 week Quality: cramping Location: generalized abdomen Radiation: no radiation Activities at Onset: none Modifying Factors: IMPROVES WITH: analgesics, defecating, vomiting Associated Symptoms: fever/chills, nausea/vomiting, shortness of breath, weakness Hx of Similar Symptoms: Yes Allergies: Coded Allergies: doxycycline (Verified Allergy, Severe, THROAT SWELLS, 10/21/16) morphine (Verified Allergy, Unknown, 10/21/16) Past History Past Medical History Respiratory: asthma, pneumonia GI: gallbladder disease, ulcers Female: endometriosis, endometritis, kidney stones Neurological: TIA, migraines, multiple sclerosis Musculoskeletal: back pain, neck pain Psychological: depression Surgical History General: EGD, appendix, exploratory laparotomy, gallbladder Reproductive/: hysterectomy Joint: knee Family History Family PMH: FOUND: other Vaccines Hx Influenza Vaccination: Yes (2013) Hx Pneumococcal Vaccination: Yes (FALL 2007) Hx Tetanus Diptheria: No (UNKNOWN) Hx Tetanus, Diptheria, Pertuss: No Social History Does patient use chewing tobac: No Second Hand Exposure: No Substance Use Type: does not use Alcohol Intake: none Sexuality: male partner Review of Systems ENMT Sinuses: congestion, rhinorrhea Mouth/Throat: sore throat Pulmonary Respiratory: cough GI Upper Abdomen: pain Lower Abdomen: diarrhea, pain Neurological General: headache All other Systems All Other Systems: Reviewed and Negative Physical Exam General General Nourishment: well nourished, well developed, appears stated age, no acute distress, adult, thin General Body Habitus: well groomed Vitals and Pain First Documented Vital Signs Date Time Temp Pulse Resp B/P Pulse Ox O2 Delivery O2 Flow Rate FiO2 10/21/16 13:58 99.3 98 18 114/57 98 Room Air Weight: Kilograms: 59.000 Height (feet): 5 Height (inches): 3.00 Triage Pain Scale: RN VS reviewed by Provider: Yes Eyes (brief) Eyes Brief: found: EOMI, PERRL, not found: scleral icterus ENMT (brief) ENMT Brief: FOUND: TM clear, TM good light reflex, ear canals clear, mucosa moist, nasal exudate, normal tonsils Comments PND Neck (brief) Neck: FOUND: adenopathy, trachea midline, NOT FOUND: JVD, thyromegaly Respiratory (brief) Respiratory: FOUND: clear all jaime, equal bilaterally, symmetrical, NOT FOUND : rales, wheezes Cardiovascular (brief) Cardiac: FOUND: regular rate, regular rhythm, NOT FOUND: click, gallop, murmur , pedal edema, peripheral edema, rub Capillary Refill: <2 sec Pulses: all distal extremities, equal, strong Abdomen (brief) Abdominal Brief: FOUND: bowel normo active x4, soft, NOT FOUND: distended, hepatosplenomegaly, pulsatile mass, tender Musculoskeletal (brief) Musculoskeletal Brief: NOT FOUND: deformity, loss of motion, spasm, tenderness Integumentary (brief) Integumentary Brief: FOUND: pink, warm Neurologic (brief) Neurological Brief: FOUND: CN w/o gross def to obs, DTR 2/4 all extremities, gait w/o gross def to obs, motor-no gross deficits, sensory-no gross deficits, NOT FOUND: Babinski Psychiatric (brief) Psychiatric Brief: FOUND: alert, normal affect, oriented Differential Diagnoses Considering: Dehydration, Food Poisoning, Gastroenteritis, Hepatitis, Hyponatremia, Hypokalemia, Hypoglycemia, Influenza, Ingestion/Overdose, Pancreatitis, Pyelonephritis, Renal Colic, Sinusitis, UTI, Viral Syndrome Progress Results/Orders Orders Procedure Category Date Status Time Cbc W/Auto LAB 10/21/16 Complete Diff-Reflex Manual 14:16 Cmp - Comprehensive LAB 10/21/16 Complete Metabolic 14:16 Lipase LAB 10/21/16 Complete 14:16 Tsh - Thyroid Stim LAB 10/21/16 Complete Hormone 14:16 Iv Lock (Ed Only) EDM 10/21/16 Transmitted 14:16 Normal Saline (Normal PHA 10/21/16 Complete Saline Iv) 14:16 Ondansetron Inj PHA 10/21/16 Complete (Zofran) 14:30 Ketorolac (Toradol) PHA 10/21/16 Complete 14:30 Respiratory Panel, Pcr LAB 10/21/16 Complete 14:16 Gi Panel, Pcr, Stool LAB 10/21/16 Logged 14:16 UA, LAB 10/21/16 Complete Dip&Micro(Complete) & 16:48 Ondansetron Inj PHA 10/21/16 Complete (Zofran) 17:30 Lab Results Laboratory Tests Test 10/21/16 14:27 10/21/16 15:12 10/21/16 16:48 White Blood Count 8.0T/MM3 Red Blood Count 4.28M/MM3 Hemoglobin 14.1GM/DL Hematocrit 41.3% Mean Corpuscular Volume 96.5UM3 Mean Corpuscular Hemoglobin 32.9UUG Mean Corpuscular Hemoglobin Concent 34.1GM/DL RDW Standard Deviation 43.5FL Platelet Count 212T/MM3 Mean Platelet Volume 10.1UM3 Immature Granulocyte % (Auto) % Neutrophils (%) (Auto) % Lymphocytes (%) (Auto) % Monocytes (%) (Auto) % Eosinophils (%) (Auto) % Basophils (%) (Auto) % Absolute Immature Granulocyte (auto T/MM3 Absolute Neutrophils (auto) T/MM3 Absolute Lymphocytes (auto) T/MM3 Absolute Monocytes (auto) T/MM3 Absolute Eosinophils (auto) T/MM3 Absolute Basophils (auto) T/MM3 Neutrophils % (Manual) 93.0% Band Neutrophils % 1.0% Lymphocytes % (Manual) 5.0% Monocytes % (Manual) 1.0% Absolute Neutrophils (Manual) 7.4T/MM3 Band Neutrophils # 0.1T/MM3 Lymphocytes # (Manual) 0.4T/MM3 Monocytes # (Manual) 0.1T/MM3 Red Cell Morphology Comment Normal Turbidity < 20 Sodium Level 145MEQ/L Potassium Level 3.6MEQ/L Chloride Level 107MEQ/L Carbon Dioxide Level 25MEQ/L Anion Gap 13MEQ/L Blood Urea Nitrogen 17.0MG/DL Creatinine 0.6MG/DL Glomerular Filtration Rate Calc 112 BUN/Creatinine Ratio 28RATIO Glucose Level 108MG/DL Calculated Osmolality 282MOSM/KG Calcium Level 8.9MG/DL Total Bilirubin 0.80MG/DL Icterus Index < 2 Aspartate Amino Transf (AST/SGOT) 17U/L Alanine Aminotransferase (ALT/SGPT) 32U/L Alkaline Phosphatase 46U/L Total Protein 6.9G/DL Albumin 4.4G/DL Globulin 2.5G/DL Albumin/Globulin Ratio 1.8RATIO Lipase 46U/L Thyroid Stimulating Hormone (TSH) 0.13MIU/L Chemistry Specimen Hemolysis 28 Adenovirus (PCR) Negative Bordetella parapertussis DNA (PCR) Negative Chlamydia pneumoniae DNA (PCR) Negative Coronavirus Type OC43 (PCR) Negative Coronavirus Type HKU1 (PCR) Negative Coronavirus Type 229E (PCR) Negative Coronavirus Type NL63 (PCR) Negative Human Metapneumovirus (PCR) Negative Influenza Virus Type A (PCR) Negative Influenza Virus Type B (PCR) Negative Mycoplasma pneumoniae (PCR) Negative Parainfluenza Type 1 (PCR) Negative Parainfluenza Type 2 (PCR) Negative Parainfluenza Type 3 (PCR) Negative Parainfluenza Type 4 (PCR) Negative Respiratory Syncytial Virus (PCR) Negative Enterovirus/Rhinovirus (PCR) Negative Urine Collection Type Cleancatch-midstream Urine Color Yellow Urine Turbidity Sl cloudy Urine pH 5.5 Urine Specific [place] >=1.030 Urine Protein 1+ Urine Glucose (UA) Negative Urine Ketones Negative Urine Blood Negative Urine Nitrite Negative Urine Bilirubin 1+ Urine Urobilinogen 0.2EU/DL Urine Leukocyte Esterase Negative Urine RBC 0-1/HPF Urine WBC 1-3/HPF Urine Squamous Epithelial Cells 0-5 Urine Bacteria Trace Urine Mucus Present Urine Culture Indicated Cult not indicated Medications Current ED Medications Sodium Chloride (Normal Saline IV) 1,000 ml @ 0 mls/hr Q0M ONCE IV Last administered on 10/21/16 14:34; Start 10/21/16 at 14:16; Stop 10/21/16 at 14:18 ; Status DC Ondansetron HCl (Zofran) 4 mg O ONCE IV Last administered on 10/21/16 14:41; Start 10/21/16 at 14:30; Stop 10/21/16 at 14:31; Status DC Ketorolac Tromethamine (Toradol) 30 mg O ONCE IV Last administered on 14:37; Start 10/21/16 at 14:30; Stop 10/21/16 at 14:31; Status DC Ondansetron HCl (Zofran Odt) 4 mg O ONCE PO ; Start 10/21/16 at 17:15; Stop at 17:16; Status Cancel Ondansetron HCl (Zofran) 4 mg O ONCE IV Last administered on 10/21/16 17:29; Start 10/21/16 at 17:30; Stop 10/21/16 at 17:31; Status DC Progress Progress Pt improved following IVF. No urgent/emergent dx on Hx, PE, labs/rads. Pt given instructions on PO hydration. Pt voiced understanding of dx, prognosis, tx, and f/u need. DANIEL ETIENEN DO October 21, 2016 14:35
[2016-10-21] MEDS ORDERED: IBUP-1724 PO (14:44)
[2016-10-21 14:46] LABS: ALBUMIN 4.4 G/DL (3.5-5.0); ALBUMIN/GLOBULIN RATIO 1.8 RATIO (1.1-2.2); ALKALINE PHOSPHATASE 46 U/L (38-126); ALT (SGPT) 32 U/L (9-52); ANION GAP 13 MEQ/L (5-15); AST (SGOT) 17 U/L (14-36); BUN/CREATININE RATIO 28 RATIO (6-26); CALCIUM 8.9 MG/DL (8.4-10.2); CHLORIDE 107 MEQ/L (98-107); CO2 - CARBON DIOXIDE 25 MEQ/L (22-30); CREATININE 0.6 MG/DL (0.7-1.2); GLOMERULAR FILTRATION RATE 112; GLUCOSE 108 MG/DL (65-110); LIPASE 46 U/L (23-300); POTASSIUM 3.6 MEQ/L (3.6-5); SODIUM 145 MEQ/L (134-144); TOTAL PROTEIN 6.9 G/DL (6.3-8.2)
[2016-10-21 14:48] LABS: BAND NEUTROPHILS # 0.1 T/MM3; LYMPHOCYTES # (MANUAL) 0.4 T/MM3 (1-4.8); MONOCYTES # (MANUAL) 0.1 T/MM3 (0-0.8); NEUTROPHILS #(MANUAL)-ABSOLUTE 7.4 T/MM3 (1.8-7.7); TOTAL CELLS COUNTED 100 %
[2016-10-21 15:16] LABS: THYROID STIM HORMONE-TSH 0.13 MIU/L (0.47-4.68)
--- NOTE | 2016-10-21 15:59 | NUR ---
STATUS/PO FLUIDS PT DENIES NAUSEA AT THIS TIME. PROVIDED WITH GLASS OF ICE WATER PER REQUEST AFTER APPROVAL FROM PROVIDER. CALL LIGHT WITHIN REACH, WILL CONTINUE TO MONITOR.
--- NOTE | 2016-10-21 16:45 | NUR ---
STATUS PT AMBULATORY TO BR WITH STEADY GAIT TO VOID FOR UA. TOLERATES ACTIVITY WELL. DENIES FURTHER NEEDS AT THIS TIME. CALL LIGHT WITHIN REACH.
[2016-10-21 16:59] LABS: BLOOD, URINE NEGATIVE (NEGATIVE); COLOR,URINE YELLOW (YELLOW); LEUKOCYTE ESTERASE ,URINE NEGATIVE (NEGATIVE); NITRITE,URINE NEGATIVE (NEGATIVE); UROBILINOGEN,URINE 0.2 EU/DL (NORMAL)
[2016-10-21] MEDS ORDERED: ONDA4TAB10 PO (17:11)
[2016-10-21 17:14] LABS: BACTERIA,URINE TRACE (NEGATIVE); RBC,URINE 0-1 /HPF (0-3); SQUAMOUS EPITHELIAL CELL,UR 0-5
[2016-10-21 17:15] LABS: MUCUS,URINE PRESENT
[2016-10-21] MEDS ORDERED: ONDANSETRON ODT 4 MG TAB PO ONE (17:15)
[2016-10-21 17:35] VITALS: BP 93/52; PULSE 71; RESP 18; O2SAT 98
--- NOTE | 2016-10-21 17:35 | NUR ---
DISCHARGE WRITTEN INSTRUCTIONS REVIEWED AND SENT WITH PT. PT VERBALIZES UNDERSTANDING OF DI, DENIES QUESTIONS. REPORTS GENERALIZED PAIN 4/10 ON DISMISSAL. PT AMBULATES OUT OF ER WITH STEADY GAIT TO LOBBY AT THIS TIME.
== END 2016-10-21 17:35 | disposition home or self-care (01) ==
LOC: ED 13:57
DX: K52.9 Noninfective gastroenteritis and colitis, unspecified (principal); E86.0 Dehydration
CPT/HCPCS: 80053; 81001; 83690; 84443; 85025; 87486; 87581; 87633; 87798; 96361; 96374; 96375; 96376; 99284; J1885; J2405; J7030